=== PATIENT | female | born 1990 | race Caucasian/White ===

== ENCOUNTER 2024-11-23 13:32 | Emergency (ER) | payer OTHER, SELFPAY ==
[2024-11-23 13:35] VITALS: BP 135/67
--- NOTE | 2024-11-23 13:38 | ED.GENMED ---
ED Provider Triage
<Camilo Juan PA-C - Last Filed: 11/23/24 13:39>
-
Patient seen by provider in Triage?: Seen in Triage
34-year-old female notes progressively worsening significant left-sided headache over the past several weeks. Recent dental procedure. Has been on steroid and antibiotics but no improvement. Sent in by family doctor for further imaging of her
head.
She is ambulatory and alert. Vital signs are stable through triage but will start workup with labs including sed rate CRP test and CT of the head
Patient seen by medical provider in triage but warrants further assessment
History of Present Illness
<Camilo Juan PA-C - Last Filed: 11/23/24 13:39>
General
Chief Complaint: Headache
Time Seen by Provider: 11/23/24 17:58
<Abbey Marshall PA-C - Last Filed: 11/24/24 01:17>
General
Source: patient
Exam Limitations: none
History of Present Illness
History of Present Illness:
34yoF with no significant past medical history presenting for evaluation of ongoing headaches. Symptoms initially began at the beginning of September. Headache started about 5 days after a dental procedure so she assumed that her headache was
related to this. The headaches have essentially been constant since then. Her pain is currently located in the left occipital/mastoid region. The pain sometimes radiates to the left ear and left side of the neck. She describes the pain as a
'deep tension headache.' She has been taking Tylenol with some mild improvement. She has had multiple dental procedures since her headache started. She has been on multiple rounds of antibiotics and is currently on prednisone without any relief.
Her oral surgeon told her that her headache was not dental in origin and she was advised to follow-up with her PCP. She saw her PCP today who then instructed her to go to the ED for a CT scan. Patient denies any head trauma, photophobia, fevers,
vomiting. Her current headache is rated as a 5 out of 10 in severity.
Phy Exam
<Abbey Marshall PA-C - Last Filed: 11/24/24 01:17>
General Physical Exam
General Presentation: well appearing and no apparent distress
General age: appears stated age
General Skin: warm and dry
General Habitus: normal
General Mental: alert
ENT Exam
ENT Exam: TM's normal and neck supple
Additional ENT: No meningismus
Eye Exam
Eye Exam: PERRL and conjunctiva normal
Pulmonary Exam
Pulmonary Exam: no respiratory distress
Neurological Exam
Neurological Exam: alert
Kala Coma Scale
Eye Opening: Spontaneous
Verbal Response: Oriented
Motor Response: Obeys Commands
GCS Total Score: 15
Skin Exam
Skin Exam: normal color, warm/dry and other (No skin changes noted to scalp.)
Psychiatric Exam
Psychiatric Exam: normal mood/affect
Course
<Camilo Juan PA-C - Last Filed: 11/23/24 13:39>
Orders/Labs/Results
Orders:
Orders
11/23/24 13:37
CT Head W/o Iv Contrast Urgent
Comment:
Reason For Exam: left sided headache
11/23/24 13:38
Test Result ONCE
11/23/24 13:50
CRP [C-Reactive Protein] Urgent
Complete Blood Count/With Diff Urgent
Comprehensive Metabolic Panel Urgent
HCG, Serum Qualitative Screen Urgent
Sed Rate [Erythrocyte Sed Rate] Urgent
Abnormal Lab Results
11/23/24
13:50
MPV 11.1 H fL
(7.4-10.4)
11/23/24 13:50
11/23/24 13:50
Vital Signs
Initial and Last Documented VS:
Initial Vital Signs
Temp Pulse Resp BP Pulse Ox
97.4 F 74 18 135/67 100
11/23/24 13:35 11/23/24 13:35 11/23/24 13:35 11/23/24 13:35 11/23/24 13:35
Last Documented Vital Signs
Temp Pulse Resp BP Pulse Ox
97.4 F 65 18 132/74 98
11/23/24 13:35 11/23/24 15:00 11/23/24 15:00 11/23/24 15:00 11/23/24 15:00
<Abbey Marshall PA-C - Last Filed: 11/24/24 01:17>
Orders/Labs/Results
Orders:
Orders
11/23/24 13:37
CT Head W/o Iv Contrast Urgent
Comment:
Reason For Exam: left sided headache
11/23/24 13:38
Test Result ONCE
11/23/24 13:50
CRP [C-Reactive Protein] Urgent
Complete Blood Count/With Diff Urgent
Comprehensive Metabolic Panel Urgent
HCG, Serum Qualitative Screen Urgent
Sed Rate [Erythrocyte Sed Rate] Urgent
Abnormal Lab Results
11/23/24
13:50
MPV 11.1 H fL
(7.4-10.4)
11/23/24 13:50
11/23/24 13:50
Vital Signs
Initial and Last Documented VS:
Initial Vital Signs
Temp Pulse Resp BP Pulse Ox
97.4 F 74 18 135/67 100
11/23/24 13:35 11/23/24 13:35 11/23/24 13:35 11/23/24 13:35 11/23/24 13:35
Last Documented Vital Signs
Temp Pulse Resp BP Pulse Ox
97.4 F 65 18 132/74 98
11/23/24 13:35 11/23/24 15:00 11/23/24 15:00 11/23/24 15:00 11/23/24 15:00
<Abbey Marshall PA-C - Last Filed: 11/24/24 01:17>
MDM/Problems Addressed
Differential Diagnosis Includes:
34yoF here with L posterior headaches x 6 weeks. Has been on multiple rounds of abx and currently on prednisone without relief. Sent in by PCP for a CT scan. Denies photophobia, vomiting, fevers. No trauma. She is afebrile and hemodynamically
stable. She is well-appearing in no acute distress. No skin changes or tenderness on exam. No meningismus or focal neurologic deficits noted. Differential diagnosis includes but is not limited to: Tension headache, migraine, occipital neuralgia,
brain mass
Workup obtained in triage. Labs unremarkable including normal white count and CRP. CT head is negative for acute findings. Findings discussed with patient. Offered IV migraine cocktail which she declines. Patient states she would like to go
home to be with her children and prefers to take OTC mediations. Headache is currently manageable and a 5/10 in severity. Will refer to neurology for f/u. ED return precautions discussed. She was discharged in stable condition.
<Abbey Marshall PA-C - Last Filed: 11/24/24 01:17>
*Critical Care Note
Total Time (30-74mins, 75-104mins- exclusive of procedures): Not Applicable
ED Attending Note
<Camilo Juan PA-C - Last Filed: 11/23/24 13:39>
-
Portions of this chart may have been created with voice recognition software.� Occasional wrong word or��sound alike� substitutions may have occurred due to the inherent limitations of voice recognition software.
Discharge Plan
Departure
Patient Disposition: Home (Routine Discharge)
Date of Disposition: 11/23/24
Time of Disposition: 18:21
Patient with high blood pressure during this ER visit?: No
Discharge Problem:
New daily persistent headache
Instructions: Headache, Adult (DC)
Prescriptions:
No Action
[id number] 1 mg Tablet
1 tab PO DAILY
acetaminophen 325 mg Tablet
650 mg PO Q4HPRN PRN (Reason: mild pain) Qty: 30 0RF
ibuprofen 600 mg Tablet
600 mg PO Q6HPRN PRN (Reason: cramps) Qty: 30 0RF
Referrals:
Liborio Trujillo MD [Active] -
Stephan Mcdonough, [Family Provider] -
Activity Restrictions/Additional Instructions:
Try Excedrin as needed.
Please call tomorrow to schedule follow-up appointments with your family doctor and neurology.
Return to the ER with any new or worsening symptoms.
Interventions
Interventions:
*Risk Screen - Suicide Last Done: 11/23/24 13:35
*General Assessment Last Done: 11/23/24 13:35
*Neglect/Abuse Screening Last Done: 11/23/24 13:35
ED- Fall Risk Assessment Last Done: 11/23/24 17:11
*ED COVID-19 Vaccine History Last Done: 11/23/24 13:35
*Nursing Disposition Last Done: 11/23/24 19:03
ED- Neurological Assessment Last Done: 11/23/24 17:11
Discharge Date and Time
Discharge Date/Time: 11/23/24 19:05
Print Language: JORDANIAN
[2024-11-23 14:06] LABS: % Basophils 0.7 % (0-2); % Eosinophils 0.8 % (0-6); % Immature Granulocytes 0.2 % (0-0.5); % Lymphocytes 34.9 % (20.5-51.1); % Monocytes 4.7 % (1.7-9.3); % Neutrophils 58.7 % (42.2-75.2); Absolute Basophils 0.1 10^3/uL (0-0.2); Absolute Eosinophils 0.1 10^3/uL (0-0.7); Absolute Monocytes 0.4 10^3/uL (0.1-0.6); Hematocrit 38.8 % (37.0-47.0); Hemoglobin 13.4 g/dL (12.0-16.0); Mean Corp Hgb Conc. 34.5 g/dL (33.0-37.0); Mean Corpuscular Hgb 30.6 pg (27.0-31.0); Mean Corpuscular Volume 88.6 fL (81.0-99.0); Mean Platelet Volume 11.1 fL (7.4-10.4); Nucleated Red Blood Cells % 0 %; Platelet Count 262 10^3/uL (130-400); Red Blood Cell Count 4.38 10^6/uL (4.20-5.40); Red Cell Dist. Width 12.4 % (11.5-14.5); White Blood Cell Count 8.5 10^3/uL (4.8-10.8)
[2024-11-23 14:19] LABS: HCG, Serum Qualitative Screen Negative
[2024-11-23 14:22] LABS: ALT (SGPT) 17 U/L (0-35); AST (SGOT) 21 U/L (14-36); Albumin 4.7 g/dl (3.5-5.0); Alkaline Phosphatase 42 U/L (38-126); Blood Urea Nitrogen 14 mg/dl (7-17); Calcium 9.3 mg/dl (8.4-10.2); Carbon Dioxide 27 mmol/L (22-30); Chloride 104 mmol/L (98-107); Glucose 85 mg/dl (70-99); Sodium 140 mmol/L (135-145); Total Bilirubin 0.6 mg/dl (0.2-1.3); Total Protein 6.9 g/dl (6.3-8.2); eGFR > 60.00
[2024-11-23 14:25] LABS: C-Reactive Protein < 5.00 mg/L (0.0-10.00)
[2024-11-23 15:00] VITALS: BP 132/74
[2024-11-23 15:22] LABS: Erythrocyte Sed Rate 2 mm/hour (0-20)
== END 2024-11-23 19:05 | disposition home or self-care (01) ==
LOC: EMR 13:32
PROVIDERS: Physician Assistant; EMERGENCY PHYSICIAN Emergency Medicine; FAMILY PHYSICIAN Family Medicine
DX: G44.52 New daily persistent headache (NDPH) (principal)
CPT/HCPCS: 99284; 70450; 80053; 84703; 85025; 85652; 86140